=== PATIENT | male | born 1955 | race American Indian/Alaskan Native ===

== ENCOUNTER 2018-05-03 20:03 | Emergency (ER) | payer MEDICAID ==
[2018-05-03] MEDS ORDERED: Albuterol-Ipratrop 3 mg / 0.5 (3 ml) UD IH STA (21:28)
--- NOTE | 2018-05-03 21:31 | ED PDOC ---
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 Patient reports nasal congestion, sore throat, and semi-productive cough. Denies fever, nausea/vomiting, chest pain, shortness of breath, palpitations, abdominal pain, recent travel, sick contacts. No medications taken for relief thus far. Past Medical History Reviewed: Historical Data, Nursing Documentation, Vital Signs Vital Signs: Last Vital Signs Temp 98.7 F 05/03/18 21:04 Pulse 76 05/03/18 21:04 Resp 18 05/03/18 21:04 BP 150/86 05/03/18 21:04 Pulse Ox 98 05/03/18 21:04 - Medical History PMH: Arthritis, Asthma (as a child), Back Problems (Herniated lumbar disc), Diabetes, HTN, Hypercholesterolemia Denies: HIV, Chronic Kidney Disease - Surgical History Surgical History: Back Surgery - Family History Family History: States: No Known Family Hx - Home Medications Home Medications: Ambulatory Orders Medication Instructions Recorded Diazepam 5 mg PO Q8 PRN 08/22/14 Ergocalciferol (Vitamin D2) 50,000 unit PO FR 08/22/14 [Vitamin D2] Gabapentin 300 mg PO TID 08/22/14 Glimepiride 2 mg PO BID 08/22/14 Losartan [Cozaar] 50 mg PO DAILY 08/22/14 Metformin Hydrochloride [Metformin] 500 mg PO BID 08/22/14 Montelukast [Singulair] 10 mg PO DAILY 08/22/14 Naproxen [Naprosyn] 500 mg PO Q12H #20 tab 08/22/14 Nateglinide 120 mg PO TID 08/22/14 Omeprazole 20 mg PO DAILY 08/22/14 Oxycodone HCl/Acetaminophen 1 tab PO Q8H #10 tab 08/22/14 [Percocet 325 mg-5 mg] Simvastatin 20 mg PO HS 08/22/14 Albuterol HFA [Ventolin HFA 90 1 puff IH Q4 PRN #1 inh 05/03/18 mcg/actuation (8 g)] Fluticasone Nasal [Flonase] 1 actuation NS BID #1 bottle 05/03/18 guaiFENesin/Dextromethorphan 1 - 2 tab PO Q12 PRN #20 tab 05/03/18 [guaiFENesin/DM 600-30 mg] - Allergies Allergies/Adverse Reactions: Allergies Allergy/AdvReac Type Severity Reaction Status Date / Time Penicillins Allergy RASH Verified 05/03/18 21:04 Review of Systems ROS Statement: Except As Marked, All Systems Reviewed And Found Negative Constitutional: Positive for: Chills ENT: Positive for: Nose Congestion Respiratory: Positive for: Cough Physical Exam - Reviewed Nursing Documentation Reviewed: Yes Vital Signs Reviewed: Yes - Physical Exam Appears: Positive for: Well, Non-toxic, No Acute Distress Head Exam: Positive for: ATRAUMATIC, NORMAL INSPECTION, NORMOCEPHALIC Skin: Positive for: Normal Color ENT: Positive for: Nasal Congestion Cardiovascular/Chest: Positive for: Regular Rate, Rhythm Respiratory: Positive for: Normal Breath Sounds Gastrointestinal/Abdominal: Positive for: Normal Exam Back: Positive for: Normal Inspection Extremity: Positive for: Normal ROM Neurologic/Psych: Positive for: Alert, Oriented (x3) - ECG O2 Sat by Pulse Oximetry: 98 - Progress ED Course And Treament: flu, strep, chest xray, duoneb Patient educated on findings, discharged with rx Flonase, Mucinex DM, ALbuterol HFA Advised follow up PMD 2-3 days Rest, fluids. Return precautions given Patient demonstrates full understanding of discharge instructions Patient requires no further intervention in the ED and is stable for discharge at this time Disposition - Clinical Impression Clinical Impression: Upper respiratory infection - Patient ED Disposition Is Patient to be Admitted: No Counseled Patient/Family Regarding: Studies Performed, Diagnosis, Need For Followup, Rx Given - Disposition Disposition: Routine/Home Disposition Time: 23:08 Condition: IMPROVED Prescriptions: Albuterol HFA [Ventolin HFA 90 mcg/actuation (8 g)] 1 puff IH Q4 PRN #1 inh PRN Reason: Wheezing Fluticasone Nasal [Flonase] 1 actuation NS BID #1 bottle guaiFENesin/Dextromethorphan [guaiFENesin/DM 600-30 mg] 1 - 2 tab PO Q12 PRN #20 tab PRN Reason: cough and congestion Instructions: Viral Upper Respiratory Infection, Adult (DC) Print Language: CHADIAN
[2018-05-03] MEDS ORDERED: Albuterol 0.083% Inhal Sol (2.5 mg/3 mL) UD ONE (21:49)
[2018-05-03 23:40] VITALS: BP 146/60; PULSE 80; RESP 16; TEMP 98.6; O2SAT 99
--- NOTE | 2018-05-04 12:05 | RAD ---
Date of service: 05/03/2018 HISTORY: cough COMPARISON: 06/14/2013 TECHNIQUE: Chest PA and lateral FINDINGS: LUNGS: No active pulmonary disease. PLEURA: No significant pleural effusion identified. No pneumothorax apparent. CARDIOVASCULAR: Normal. OSSEOUS STRUCTURES: No significant abnormalities. VISUALIZED UPPER ABDOMEN: Normal. OTHER FINDINGS: None. IMPRESSION: No active disease.
== END 2018-05-03 23:20 | disposition home or self-care (01) ==
LOC: H.ER 20:03
DX: J06.9 Acute upper respiratory infection, unspecified (principal); E78.00 Pure hypercholesterolemia, unspecified; I10 Essential (primary) hypertension; Z79.84 Long term (current) use of oral hypoglycemic drugs; Z88.0 Allergy status to penicillin